=== PATIENT | male | born 1995 | race Caucasian/White ===

== ENCOUNTER 2016-09-09 14:45 | Emergency (ER) | payer OTHER ==
[~2016-09-09] VITALS: Ht 177.8 cm; Wt 78.0 kg
[2016-09-09 14:53] VITALS: TEMP 37; Ht 177.8 cm; Wt 78.0 kg
--- NOTE | 2016-09-09 15:27 | DIAGNOSTIC IMAGING REPORT ---
CHEST 2 VIEWS ROUTINE CLINICAL HISTORY: cough dyspnea COMPARISON STUDY: No previous studies for comparison. FINDINGS: The bones soft tissues and hemidiaphragms are normal. The cardiomediastinal silhouette is normal. The lungs are clear. The pulmonary vasculature is normal. IMPRESSION: Negative chest. Electronically signed by: Adelso Banegas M.D. 09/09/2016 3:25 PM Dictated Date/Time: 09/09/2016 3:25 PM
--- NOTE | 2016-09-09 15:48 | EMERGENCY ROOM VISIT NOTE ---
ED Visit Note First contact with patient: 15:01 CHIEF COMPLAINT: Productive cough with blood-tinged sputum HISTORY OF PRESENT ILLNESS: This 20-year-old male presents the ER with chief complaint of productive cough with blood-tinged sputum. The patient states that he was diagnosed with the influenza on September 04. At that time he had fever , bodyaches and a dry cough. Since that time his cough has gotten more congested and he is coughing up blood-tinged sputum. The patient is concerned that he may have pneumonia. The patient denies any sore throat, ear pain. He does admit to some head congestion. He also states that it is very dry in his apartment REVIEW OF SYSTEMS: 6 system review was performed and was negative unless stated otherwise in history of present illness. PMH: The patient is healthy; recent influenza, no significant other past medical history. SOCIAL HISTORY: Patient lives with friends. The patient denies any tobacco use but does admit to occasional alcohol use. PHYSICAL EXAM: Vital Signs were reviewed: Temperature 37.0, blood pressure 155/ 84, pulse rate 74, respiratory rate 18 Reviewed Nurse's notes and agree. Oxygen saturation is 98 % on room air which is normal . GENERAL: 20-year-old male appears in no acute distress. MENTAL STATUS: Alert, oriented, coherent. EARS: Canals clear. TMs good light reflex, no erythema or fluid level noted. NOSE: Nasal mucosa with moderate erythema engorgement. There is some blood noted within the right nasal passage. PHARYNX: No erythema, no edema noted. No exudate noted. Airway is adequate. NECK: Supple, non-tender. No lymphadenopathy noted. LUNGS: Clear to auscultation without wheezes rales or rhonchi. The patient did have deep congestion, cough intermittently throughout. Clinical encounter. CARDIAC: Regular rate and rhythm without murmur. SKIN: No rashes noted. EMERGENCY DEPARTMENT COURSE: The patient was evaluated. Chest x-ray was ordered , interpreted by the radiologist and myself. Diagnostics: CHEST 2 VIEWS ROUTINE CLINICAL HISTORY: cough dyspnea COMPARISON STUDY: No previous studies for comparison. FINDINGS: The bones soft tissues and hemidiaphragms are normal. The cardiomediastinal silhouette is normal. The lungs are clear. The pulmonary vasculature is normal. IMPRESSION: Negative chest. Electronically signed by: Adelso Banegas M.D. 09/09/2016 3:25 PM Dictated Date/Time: 09/09/2016 3:25 PM The patient was informed of the findings. The patient was discharged home in stable condition. DIAGNOSIS: Acute bronchitis DISCHARGE INSTRUCTIONS AND TREATMENT: Take Z-Jared as prescribed. Also recommend saline nasal spray several times a day. Also small sips of water several times daily to keep her throat moist. May continue [id number] symptomatic treatment. Recommend cool mist humidifier in her bedroom. If symptoms persist or worsen, follow-up with [facility]. Current/Historical Medications No Active Prescriptions or Reported Meds Allergies Coded Allergies: No Known Allergies (Unverified , 09/09/16) Vital Signs Date Time Temp Pulse Resp B/P Pulse Ox O2 Delivery O2 Flow Rate FiO2 09/09/16 14:53 37.0 74 18 155/84 98 Room Air Departure Information Prescriptions No Active Prescriptions or Reported Meds Referrals No Doctor, Assigned (PCP) Patient Instructions [facility] Arrey Jianshu
[2016-09-09] MEDS ORDERED: AZITTAB PO (15:49)
[2016-09-09 15:58] VITALS: BP 144/56; PULSE 73; O2SAT 97
== END 2016-09-09 16:02 | disposition home or self-care (01) ==
LOC: C.EDB 14:50 → C.EDD 16:02
DX: J20.9 Acute bronchitis, unspecified (principal)